=== PATIENT | female | born 1985 | race Two or more races ===

== ENCOUNTER 2024-10-29 08:46 | Emergency (ER) | payer OTHER ==
[~2024-10-29] VITALS: Ht 162.6 cm; Wt 93.2 kg
[2024-10-29 08:54] VITALS: BP 105/59; PULSE 76; RESP 18; TEMP 98.2; O2SAT 100
[2024-10-29] MEDS ORDERED: CLIN300C58 PO (09:04)
[2024-10-29] MEDS ORDERED: HYDR-4062 PO (09:04)
== END 2024-10-29 09:16 | disposition home or self-care (01) ==
LOC: EMS 08:52
DX: K04.7 Periapical abscess without sinus (principal); Z90.89 Acquired absence of other organs; Z88.0 Allergy status to penicillin
CPT/HCPCS: 99283; Z7502